=== PATIENT | male | born 1970 ===

== ENCOUNTER → 2020-12-07 08:04 | Outpatient (CLI) | payer OTHER, SELFPAY ==
[2020-12-07 12:19] LABS: COVID19 -Nasal RAPID Negative (Negative)
== END ==
PROVIDERS: PCP Student in an Organized Health Care Education/Training Program; Visit Provider Physician Assistant
DX: Z01.812 Encounter for preprocedural laboratory examination (principal); Z20.822 Contact with and (suspected) exposure to COVID-19
CPT/HCPCS: 87635

== ENCOUNTER 2020-12-08 11:52 | Day surgery (SDC) | payer OTHER, SELFPAY ==
--- NOTE | 2020-12-08 | PATH_ITS ---
[facility] Accession Number: [id number] . 01 Material submitted: . PART A: gastrointestinal site - ANTRUM PART B: gastrointestinal site - FUNDAL POLYP PART C: esophagus, E-G Junction - GEJ PART D: colon - CECAL POLYP PART E: colon - SIGMOID POLYP . 02 Diagnosis: A. Designated Antrum, Biopsy: Gastric oxyntic mucosa with no diagnostic abnormality. No evidence of Helicobacter organisms on H/E stain. Negative for intestinal metaplasia. Negative for dysplasia and malignancy. . B. Gastric Polyp, Biopsy: Gastric hyperplastic polyp. No evidence of Helicobacter organisms on H/E stain. Negative for intestinal metaplasia. Negative for dysplasia or malignancy. . C. Gastroesophageal Junction, Biopsy: Proximal gastric-type mucosa with mild chronic inflammation. Negative for specialized intestinal metaplasia, dysplasia or malignancy. . D. Cecal Polyp, Biopsy: Inflammatory polyp. . E. Sigmoid Colon Polyp, Biopsy: Tubular adenoma. [facility] 12/11/2020 1531 Local . 02 Electronically signed: . Brendon Martínez MD, PhD, Pathologist NPI- [id number] . 01 Gross description: . Part A: ANTRUM: Received in formalin is 1 fragment(s) of spring, soft tissue measuring 0.2 x 0.2 x 0.2 cm submitted entirely in 1 cassette(s) Part B: FUNDAL POLYP: Received in formalin is 1 fragment(s) of spring, soft tissue measuring 0.3 x 0.3 x 0.3 cm submitted entirely in 1 cassette(s) Part C: GEJ: Received in formalin is 1 fragment(s) of spring, soft tissue measuring 0.2 x 0.1 x 0.1 cm submitted entirely in 1 cassette(s) Part D: CECAL POLYP: Received in formalin are 4 fragment(s) of spring, soft tissue measuring 0.2 x 0.1 x 0.1 cm to 0.1 x 0.1 x 0.1 cm submitted entirely in 1 cassette(s) Part E: SIGMOID POLYP: Received in formalin is 1 fragment(s) of spring, soft tissue measuring 0.1 x 0.1 x 0.1 cm submitted entirely in 1 cassette(s) /JACK 12/09/2020 0759 Local . 02 Pathologist provided ICD-10: K31.7, K20.80, D12.5, K51.40 . 02 CPT . 519995, 235139, [id number], [id number], [id number] Performed at: 01 [facility] [address] [place] [address], [place], [place] [id number] MD Thony Wylie MD Phone: [phone] Performed at: 02 [facility] [address] [place], [place] [id number] MD Sheridan Elias MD Phone: [phone]
[2020-12-08 13:06] VITALS: BP 128/85; PULSE 65; RESP 16; TEMP 36.9; O2SAT 96; BMI 27.1
--- NOTE | 2020-12-08 13:24 | PM.HP.1 ---
History of Present Illness History of Present Illness Date Patient Seen: 12/08/20 Time Patient Seen: 13:25 Chief complaint: SDC Narrative: Recent incomplete colonoscopy. Longstanding GERD. Indicated for Jimenez's screening as well Patient History Comment: No significant med hx Family & Social History Social History: household members spouse Tobacco & Substance use: Smoking Status Never smoker alcohol intake never Substance Use Type does not use Meds Home Medications and Allergies Home Medications Medication Instructions Recorded Confirmed Type LISINOPRIL (Zestril / Prinivil) 20 mg PO Q DAY #0 09/10/07 12/08/20 History Allergies Allergy/AdvReac Type Severity Reaction Status Date / Time No Known Drug Allergies Allergy Verified 12/08/20 13:05 Review of Systems Review of Systems ROS: Yes All systems reviewed with the patient and are negative except as otherwise documented Exam Vital Signs (past 8 hours): - 12/08/20 13:06 Temperature 98.4 F Pulse Rate 65 Respiratory Rate 16 Blood Pressure 128/85 Pulse Oximetry 96 Oxygen Delivery Method Room Air Const General: cooperative and comfortable Orientation: alert HENNV Head: normocephalic Ears: external ears normal Nose: external nose normal Face and sinus: normal facial exam Mouth: oral mucosae normal Eyes General: appearance normal, both eyes and all related structures Neck Neck: normal visual inspection Chest Chest: normal inspection of the chest Resp Effort & Inspection: normal respiratory effort Auscultation: clear to auscultation bilaterally Cardio Rate: regular rate Rhythm: regular rhythm Heart Sounds: no murmurs GI Inspection: normal to inspection Palpation: soft and No tender Auscultation: normal bowel sounds Skin General: no rashes or lesions noted and No jaundice Neuro General: patient alert and moves all extremities Cognition: normal cognition Speech: speech normal Extrem General: no pedal edema Psych Appearance: grossly normal Assessment & Plan Assessment & Plan narrative: GERD and need for colon cancer screening. EGD and colon today. Adenomatous polyp removed from the rectum recently but poor prep.
[2020-12-08] MEDS: SODIUM CHLORIDE 0.9% 1,000 ML 125 ML IV (13:29)
--- NOTE | 2020-12-08 13:51 | PM.PREOP ---
Pre-operative Note COVID-19 COVID-19 status: Negative Result date/Date tested (Pos, Neg/Pending): 12/07/20 Interval Note History & Physical reviewed/Exam performed by Physician: Yes Changes to H&P: No ASA Class (for procedural sedation): II
[2020-12-08 13:58] VITALS: BMI 27.1
[2020-12-08] MEDS: LIDOCAINE 4% SOLN 50 ML 20 ML TOP (14:30)
[2020-12-08] MEDS: fentaNYL 250 MCG/5 ML INJ IV (14:46)
[2020-12-08] MEDS: MIDAZOLAM 5 MG/5 ML VIAL IV (14:46)
--- NOTE | 2020-12-08 15:11 | PM.OP.ENDO ---
Operative Date/Time/Diagnoses Date of procedure: 12/08/20 Time of procedure: 15:11 Pre-op diagnosis: GERD Personal hx of colon polyp Post-op diagnosis: same Procedure & Clinicians Study performed: EGD with biopsies and colonoscopy with cold forceps polypectomies Same procedure as scheduled: Yes Indications: GERD and personal history of colon polyps Surgeon: Robert Gary Procedure Notes SCOAP/Timeout: Done Procedure in detail: After the risks and benefits were explained, written and verbal informed consent was obtained. The patient was brought into the procedure room and placed into the left lateral decubitus position. Conscious sedation medication was applied as per nursing documentation. The scope was introduced into the mouth through the bite block and advanced under direct visualization to the 2nd portion of the duodenum. The scope was slowly withdrawn carefully examining the mucosa for any defects or lesions. Retroflexed views were accomplished in the stomach. The stomach was decompressed, the scope was then removed from the patient who tolerated the procedure well. The patient was then turned around a digital rectal examination was accomplished no significant pathology appreciated. The scope was introduced into the rectum and advanced under direct visualization to the level of the cecum as identified by the appendiceal orifice and ileocecal valve. The scope was slowly withdrawn to carefully examine the mucosa for any defects or lesions. Multiple direct views were made through the dentate line for exclusion of pathology the colon was decompressed scope removed the patient tolerated the procedure well. Versed 5mg Fentanyl 125mcg Bowel prep adequate. Scope withdrawal time: 12 minutes Sedation minutes: 37 Complications: none Impression: 1. Duodenum this was visually normal from the bulb through to the 2nd portion. 2. Stomach: Mild gastropathy appreciated and therefore biopsies were required from the antrum for exclusion of Helicobacter. There was a diminutive polyp in the region of the fundus removed with cold forceps. No other pathology appreciated throughout. 3. Esophagus: There was no evidence of any active esophagitis. The squamocolumnar junction correlated fairly nicely with the GEJ. However there was 1 tongue of salmon-colored mucosa that extended up into the distal esophagus in the 12:00 p.m. location concerning for a possible segment of Jimenez's. This was targeted for biopsy. No nodularity no ulcers no mass lesions the remainder of the esophagus was unremarkable. 4. Colon: There was a diminutive polyp in the cecum removed with cold forceps. There was in the dish internal diminutive polyp in the sigmoid removed with cold forceps. Endoscopic diagnosis 1. 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 Mild gastropathy 3. Diminutive gastric polyp 4. Diminutive colon polyps Post-procedure Recommendations: Colonscopy in 5 years Plan for aftercare: 1. Await histopathology 2. Surveillance EGD will only be indicated should there be evidence of specialized intestinal metaplasia 3. Continue GERD therapy 4. Repeat colonoscopy 5 years Disposition: PACU
[2020-12-08 15:16] VITALS: BP 116/74; PULSE 56; RESP 16; TEMP 36.5; O2SAT 97
[2020-12-08 15:21] VITALS: BP 118/83; PULSE 54; RESP 11; O2SAT 98
[2020-12-08 15:26] VITALS: BP 123/84; PULSE 62; RESP 12; O2SAT 99
== END 2020-12-08 15:37 | disposition home or self-care (01) ==
PROVIDERS: PCP Student in an Organized Health Care Education/Training Program; Referring Provider Internal Medicine Gastroenterology; Visit Provider Internal Medicine Gastroenterology
PROC: 0DJ08ZZ Inspection of Upper Intestinal Tract, Via Natural or Artificial Opening Endoscopic (ICD-10-PCS; CPT 43235; principal; 2020-12-08 13:00)
PROC: 0DJD8ZZ Inspection of Lower Intestinal Tract, Via Natural or Artificial Opening Endoscopic (ICD-10-PCS; CPT 45378; 2020-12-08 13:00)
DX: Z12.11 Encounter for screening for malignant neoplasm of colon (principal); Z86.010 Personal history of colon polyps; K31.9 Disease of stomach and duodenum, unspecified; K31.7 Polyp of stomach and duodenum; D12.5 Benign neoplasm of sigmoid colon; K51.40 Inflammatory polyps of colon without complications; K21.00 Gastro-esophageal reflux disease with esophagitis, without bleeding
CPT/HCPCS: 45380; 43239; J2250; J3010